=== PATIENT | male | born 1945 | race Caucasian/White ===

== ENCOUNTER 2016-09-01 07:34 | Day surgery (SDC) | payer OTHER, BC ==
[~2016-09-01 07:34] MED LIST: ASPIRIN ADULT L81 M1 PO; BAYER ASPIRIN325 M1 PO; CRESTOR10 MG PO; LASIX20 MG PO; LOPRESSOR25 MG PO; LOSARTAN POTASS50 MG PO; METOPROLOL SUCC25 MG PO; MULTIVITAMIN1 TAB PO; PLAQUENIL200 M1 PO; PRILOSEC20 MG PO; PROAIR HFA IN; QVAR80 MCG IN; SULFAZINE500 MG PO; TAMSULOSIN HCL0.4 MG PO; XARELTO10 MG PO; ZYLOPRIM100 MG PO
--- NOTE | 2016-09-01 10:31 | Provider's Discharge Care Plan ---
Problem, Goal, Plan Problem List 1. S/P colonoscopy Goals: Screening Instructions: Follow up as directed, Take meds as directed
--- NOTE | 2016-09-01 10:31 | Provider's Discharge Care Plan ---
Problem, Goal, Plan Problem List 1. S/P colonoscopy Goals: Screening Instructions: Follow up as directed, Take meds as directed
--- NOTE | 2016-09-01 11:05 | OPERATIVE REPORT ---
DATE OF SURGERY: 09/01/2016 SURGEON: Gustavo Townsend III, MD [employer]PERT: None. PREOPERATIVE DIAGNOSIS: 1. History of colitis POSTOPERATIVE DIAGNOSES: 1. No gross evidence of colitis 2. Hyperplastic polyp of the sigmoid and rectosigmoid PROCEDURES PERFORMED: 1. Colonoscopy with transverse colonic biopsies 2. Electrocautery snare polypectomy of sigmoid and rectosigmoid hyperplastic polyps ANESTHESIA: TIVA. INDICATIONS: A 70-year-old male in 2014 underwent colonoscopy, asymptomatic screening, was noted to have colitis on biopsies. No evidence of Crohn or ulcerative colitis, according to pathology. The patient remains asymptomatic. The patient does have a sister and a cousin and a niece who are positive for Crohn disease. SURGICAL FINDINGS: Normal-appearing cecum, ascending, transverse, descending colon, sigmoid colon, and rectal vault, except for 2 hyperplastic polyps, one in the distal sigmoid and the other in the proximal rectosigmoid. The rectal vault appeared grossly normal. SURGICAL TECHNIQUE: The patient was brought to the operating room and placed in the left lateral decubitus position, where he was administered TIVA and monitored closely by anesthesia. After proper anesthesia had taken effect, a digital rectal examination revealed no masses or stenosis. This was followed by the passage of a fiberoptic video flexible Olympus colonoscope which, without difficulty, negotiated to the cecum. The cecum was identified by anatomical landmarks and anterior abdominal wall ballottement. On withdrawing the scope, the aforementioned findings were noted. The cecum was identified by anatomical landmarks and anterior abdominal wall ballottement. Multiple biopsies were obtained of the cecum, the ascending, transverse, descending, sigmoid colon, and rectal vault. The 2 hyperplastic polyps in question were removed using electrocautery snare. The scope was then retroflexed, good view of the rectal vault obtained. No other pathology identified. The scope was completely withdrawn. The patient tolerated the procedure well and was transferred to the recovery room in stable condition. There were no intraoperative or anesthetic complications.
== END 2016-09-01 11:57 | disposition home or self-care (01) ==
LOC: OR SRH 07:34 → SCU SRH 07:41
PROVIDERS: Specialist
PROC: 0DBP8ZX Excision of Rectum, Via Natural or Artificial Opening Endoscopic, Diagnostic (ICD-10-PCS; principal; 2016-09-01 10:00)
PROC: 0DBK8ZX Excision of Ascending Colon, Via Natural or Artificial Opening Endoscopic, Diagnostic (ICD-10-PCS; principal; 2016-09-01 10:00)
PROC: 0DBN8ZX Excision of Sigmoid Colon, Via Natural or Artificial Opening Endoscopic, Diagnostic (ICD-10-PCS; principal; 2016-09-01 10:00)
PROC: 0DBM8ZX Excision of Descending Colon, Via Natural or Artificial Opening Endoscopic, Diagnostic (ICD-10-PCS; principal; 2016-09-01 10:00)
PROC: 0DBH8ZX Excision of Cecum, Via Natural or Artificial Opening Endoscopic, Diagnostic (ICD-10-PCS; principal; 2016-09-01 10:00)
PROC: 0DBL8ZX Excision of Transverse Colon, Via Natural or Artificial Opening Endoscopic, Diagnostic (ICD-10-PCS; principal; 2016-09-01 10:00)
DX: Z87.19 Personal history of other diseases of the digestive system (principal); D12.7 Benign neoplasm of rectosigmoid junction; D12.5 Benign neoplasm of sigmoid colon; Z83.79 Family history of other diseases of the digestive system; Z79.82 Long term (current) use of aspirin; Z86.718 Personal history of other venous thrombosis and embolism
CPT/HCPCS: 29229; 29240; 50004; 60001; 82900; 82944; 83526